=== PATIENT | female | born 1975 | race Caucasian/White ===

== ENCOUNTER 2017-10-21 12:13 | Outpatient (CLI) | payer OTHER | END 2017-10-21 12:15 | disposition home or self-care (01) | LOC: SONOGRAMA 12:13 | DX: E04.1 Nontoxic single thyroid nodule (principal) ==

== ENCOUNTER 2017-11-02 11:42 | Outpatient (CLI) | payer OTHER ==
[~2017-11-02] VITALS: Ht 162.6 cm; Wt 83.5 kg
== END 2017-11-02 17:22 | disposition home or self-care (01) ==
LOC: OFIC 805 11:42
DX: K21.9 Gastro-esophageal reflux disease without esophagitis (principal); J38.2 Nodules of vocal cords; C73 Malignant neoplasm of thyroid gland